=== PATIENT | male | born 1980 | race Caucasian/White ===

== ENCOUNTER 2021-09-27 07:03 | Inpatient (IN) | payer MEDICARE ==
[2021-09-27 08:13] LABS: #Eosinphils 0.1 thou/uL (0.0-0.7); #Lymphocytes 1.3 thou/uL (1.20-3.40); #Monocytes 0.4 thou/uL (0.11-0.59); #Neutrophils 2.7 thou/uL (1.40-6.50); %Basophils 0.7 % (0.0-1.0); %Eosinophils 1.8 % (0.0-10.0); %Lymphocytes 29.3 % (21.0-51.0); %Monocytes 9.1 % (0.0-10.0); %Neutrophils 59.1 % (42.0-75.0); Hemoglobin 9.6 g/dL (14.0-18.0); Mean Corpuscular HGB CONC 33.4 g/dL (32.0-36.0); Mean Corpuscular Hemoglobin 30.4 pg (27.0-31.0); Mean Corpuscular Volume 90.8 fL (78.0-98.0); Mean Platelet Volume 7.9 fL (7.4-10.4); Platelet Count 300 thou/uL (130-400); RBC Distribution Width 12.1 % (11.5-14.5); Red Blood Cell (RBC) Count 3.17 mill/uL (4.70-6.10); White Blood Cell (WBC) Count 4.5 thou/uL (4.8-10.8)
[2021-09-27 08:21] LABS: ALT (SGPT) Less than 7 U/L (8-55); AST (SGOT) 7 U/L (5-34); Albumin 3.7 g/dL (3.5-5.0); Alkaline Phosphatase 70 U/L (40-110); Anion Gap 21 mmol/L (10-20); BUN (Urea Nitrogen) 125 mg/dL (8.9-20.6); Bilirubin, Total 0.4 mg/dL (0.2-1.2); Calc. Creatinine Clearance 0 mL/min (70-130); Calcium 8.1 mg/dL (7.8-10.44); Carbon Dioxide 16 mmol/L (22-29); Chloride 105 mmol/L (98-107); Globulin 3.4 g/dL (2.4-3.5); Glucose 101 mg/dL (70-105); Protein, Total 7.1 g/dL (6.0-8.3); Sodium 139 mmol/L (136-145)
[2021-09-27 08:24] LABS: Potassium 2.9 mmol/L (3.5-5.1)
[2021-09-27] MEDS ORDERED: Ondansetron PF 4 MG/2 ML Vial IVP PRN (08:42)
[2021-09-27] MEDS ORDERED: Acetaminophen 325 MG TAB PO PRN (08:42)
[2021-09-27] MEDS ORDERED: HYDROcodone/Acetaminophen 5/325 mg Tablet PO PRN (08:42)
[2021-09-27] MEDS ORDERED: Calcium Carbonate 500 MG ChewTAB PO PRN (08:42)
[2021-09-27] MEDS ORDERED: Loperamide HCl 2 MG CAP PO PRN (08:42)
[2021-09-27] MEDS ORDERED: Potassium Chloride 20 MEQ TAB ONE (08:51)
[2021-09-27] MEDS ORDERED: Potassium Chloride 20 MEQ TAB PO SCH (09:00)
[2021-09-27] MEDS ORDERED: Famotidine 20 MG TAB PO SCH (09:00)
[2021-09-27] MEDS ORDERED: Sodium Bicarbonate Tab 325 MG TAB PO SCH (09:00)
[2021-09-27] MEDS ORDERED: Dextrose 5% in Water 1,000 ML IV PRN (09:11)
[2021-09-27] MEDS ORDERED: Dextrose 50% Abboject 50 ML SYRINGE SLOW IVP PRN (09:11)
[2021-09-27] MEDS ORDERED: HumaLOG 300 UNITS/3 ML VIAL SC PRN (09:11)
[2021-09-27 11:40] VITALS: BMI 25.3
[2021-09-27] MEDS ORDERED: Sodium Bicarbonate 75 MEQ in Dextrose 5 %-0.45 % NaCl 1,000 ML IV SCH (12:00)
[2021-09-27 13:29] LABS: Albumin 3.5 g/dL (3.5-5.0); Anion Gap 20 mmol/L (10-20); BUN (Urea Nitrogen) 125 mg/dL (8.9-20.6); BUN/Creatinine Ratio 19.35; Calc. Creatinine Clearance 16 mL/min (70-130); Calcium 8.2 mg/dL (7.8-10.44); Carbon Dioxide 16 mmol/L (22-29); Chloride 106 mmol/L (98-107); Glucose 110 mg/dL (70-105); Phosphorus 6.9 mg/dL (2.3-4.7); Potassium 3.3 mmol/L (3.5-5.1); Sodium 139 mmol/L (136-145)
[2021-09-27] MEDS: Sodium Bicarbonate 75 MEQ in Dextrose 5 %-0.45 % NaCl 1,000 ML IV SCH ×2 (14:54→22:01)
[2021-09-27] MEDS: Sodium Bicarbonate Tab 325 MG TAB PO SCH ×2 (14:54→20:48)
[2021-09-27] MEDS: Potassium Chloride 20 MEQ in Premix Bag 1 BAG IVPB SCH ×2 (16:28→17:44)
[2021-09-27 16:29] LABS: CK (CPK) 33 U/L (30-200); Magnesium 1.5 mg/dL (1.6-2.6)
[2021-09-27] MEDS ORDERED: Potassium Chloride 10 MEQ TAB PO SCH (18:15)
[2021-09-27 19:25] LABS: Bilirubin Negative (Negative); Blood, Urine Negative (Negative); Clarity Clear (Clear); Glucose, Urine (Dipstick) Normal (Negative); Ketone, Urine Negative (Negative); Leukocyte Negative Leu/uL (Negative); Mucous/LPF Rare LPF (<2+); Nitrite Negative (Negative); Protein, Urine (Dipstick) 100 mg/dL (Neg-Trace); RBC/HPF 0-3 HPF (0-3); Specific Gravity, Urine 1.013 (1.002-1.036); Squamous Epithelial None Seen HPF (0-3); Urobilinogen Normal mg/dL (Less than 2); WBC/HPF 0-3 HPF (0-3); pH, Urine 5.5 (5.0-9.0)
[2021-09-27 19:41] LABS: Bacteria/HPF Rare-Few HPF (None Seen)
[2021-09-27 19:44] LABS: Creatinine, Urine 128.92 mg/dL (63-166)
[2021-09-27] MEDS: Tacrolimus 1 MG CAP PO SCH (20:48)
[2021-09-27] MEDS ORDERED: LACTINEX 1 TAB PO SCH (21:59)
[2021-09-27 22:46] LABS: SARS-CoV-2 PCR by NAA Not Detected (NotDetected)
[2021-09-28] MEDS: Sodium Bicarbonate 75 MEQ in Dextrose 5 %-0.45 % NaCl 1,000 ML IV SCH ×3 (05:27→17:48)
[2021-09-28 06:15] LABS: #Eosinphils 0.1 thou/uL (0.0-0.7); #Monocytes 0.4 thou/uL (0.11-0.59); #Neutrophils 1.7 thou/uL (1.40-6.50); %Basophils 0.9 % (0.0-1.0); %Eosinophils 2.1 % (0.0-10.0); %Monocytes 11.1 % (0.0-10.0); %Neutrophils 53.9 % (42.0-75.0); Hemoglobin 6.6 g/dL (14.0-18.0); Mean Corpuscular HGB CONC 32.6 g/dL (32.0-36.0); Mean Corpuscular Hemoglobin 29.9 pg (27.0-31.0); Mean Corpuscular Volume 91.9 fL (78.0-98.0); Mean Platelet Volume 7.8 fL (7.4-10.4); Platelet Count 240 thou/uL (130-400); RBC Distribution Width 12.2 % (11.5-14.5); Red Blood Cell (RBC) Count 2.21 mill/uL (4.70-6.10); White Blood Cell (WBC) Count 3.1 thou/uL (4.8-10.8)
[2021-09-28 06:36] LABS: ALT (SGPT) Less than 7 U/L (8-55); AST (SGOT) 6 U/L (5-34); Albumin 2.6 g/dL (3.5-5.0); Alkaline Phosphatase 51 U/L (40-110); Anion Gap 15 mmol/L (10-20); BUN (Urea Nitrogen) 108 mg/dL (8.9-20.6); Bilirubin, Total 0.3 mg/dL (0.2-1.2); Calc. Creatinine Clearance 19 mL/min (70-130); Calcium 6.8 mg/dL (7.8-10.44); Carbon Dioxide 24 mmol/L (22-29); Chloride 102 mmol/L (98-107); Globulin 2.4 g/dL (2.4-3.5); Glucose 477 mg/dL (70-105); Magnesium 1.1 mg/dL (1.6-2.6); Phosphorus 4.9 mg/dL (2.3-4.7); Potassium 2.9 mmol/L (3.5-5.1); Sodium 138 mmol/L (136-145)
[2021-09-28] MEDS: Potassium Chloride 20 MEQ TAB PO SCH ×2 (07:06→12:28)
[2021-09-28] MEDS ORDERED: Magnesium Sulfate In Water 4 GM in Premix Bag 1 BAG IVPB SCH (07:15)
[2021-09-28] MEDS: Sodium Bicarbonate Tab 325 MG TAB PO SCH ×3 (08:23→21:00)
[2021-09-28] MEDS: Tacrolimus 1 MG CAP PO SCH ×2 (08:23→21:00)
[2021-09-28] MEDS: Famotidine 20 MG TAB PO SCH (08:23)
[2021-09-28 14:06] LABS: Anion Gap 16 mmol/L (10-20); BUN (Urea Nitrogen) 112 mg/dL (8.9-20.6); Calc. Creatinine Clearance 19 mL/min (70-130); Calcium 7.9 mg/dL (7.8-10.44); Carbon Dioxide 20 mmol/L (22-29); Chloride 104 mmol/L (98-107); Glucose 146 mg/dL (70-105); Potassium 3.3 mmol/L (3.5-5.1); Sodium 137 mmol/L (136-145)
[2021-09-28] MEDS: Loperamide HCl 2 MG CAP PO PRN (15:30)
[2021-09-28] MEDS: Mycophenolate 250 MG CAP PO SCH (21:00)
[2021-09-29] MEDS: Sodium Bicarbonate 75 MEQ in Dextrose 5 %-0.45 % NaCl 1,000 ML IV SCH ×2 (00:35→09:18)
[2021-09-29] MEDS: Loperamide HCl 2 MG CAP PO PRN ×2 (00:37→05:41)
[2021-09-29 06:24] LABS: Hemoglobin A1c 5.7 % (4.0-6.0)
[2021-09-29] MEDS: Tacrolimus 1 MG CAP PO SCH ×2 (07:52→21:57)
[2021-09-29] MEDS: Mycophenolate 250 MG CAP PO SCH ×2 (07:52→21:57)
[2021-09-29] MEDS: Famotidine 20 MG TAB PO SCH (07:52)
[2021-09-29] MEDS: Sodium Bicarbonate Tab 325 MG TAB PO SCH ×3 (07:52→21:57)
[2021-09-29 07:56] LABS: Mean Corpuscular HGB CONC 34.1 g/dL (32.0-36.0); Mean Corpuscular Hemoglobin 31.1 pg (27.0-31.0); Mean Corpuscular Volume 91.5 fL (78.0-98.0); Mean Platelet Volume 7.5 fL (7.4-10.4); Platelet Count 263 thou/uL (130-400); RBC Distribution Width 12.1 % (11.5-14.5); Red Blood Cell (RBC) Count 2.88 mill/uL (4.70-6.10); White Blood Cell (WBC) Count 3.5 thou/uL (4.8-10.8)
[2021-09-29 08:13] LABS: Albumin 2.9 g/dL (3.5-5.0); Anion Gap 16 mmol/L (10-20); BUN (Urea Nitrogen) 95 mg/dL (8.9-20.6); BUN/Creatinine Ratio 19.75; Calc. Creatinine Clearance 22 mL/min (70-130); Calcium 7.7 mg/dL (7.8-10.44); Carbon Dioxide 21 mmol/L (22-29); Chloride 105 mmol/L (98-107); Glucose 167 mg/dL (70-105); Magnesium 2.1 mg/dL (1.6-2.6); Phosphorus 4.1 mg/dL (2.3-4.7); Potassium 3.2 mmol/L (3.5-5.1); Sodium 139 mmol/L (136-145)
[2021-09-29] MEDS ORDERED: Ergocalciferol 1.25 MG(50,000 UNITS) CAP PO SCH (10:00)
[2021-09-29] MEDS: Potassium Chloride 20 MEQ TAB PO SCH ×3 (11:02→21:57)
[2021-09-29] MEDS: Lactated Ringer's 1,000 ML IV SCH ×2 (11:02→16:18)
[2021-09-30] MEDS: Lactated Ringer's 1,000 ML IV SCH ×3 (03:05→17:54)
[2021-09-30 06:46] LABS: Hemoglobin 8.8 g/dL (14.0-18.0); Mean Corpuscular HGB CONC 34.3 g/dL (32.0-36.0); Mean Corpuscular Volume 93.2 fL (78.0-98.0); Mean Platelet Volume 7.2 fL (7.4-10.4); Platelet Count 257 thou/uL (130-400); RBC Distribution Width 12.2 % (11.5-14.5); Red Blood Cell (RBC) Count 2.75 mill/uL (4.70-6.10); White Blood Cell (WBC) Count 3.6 thou/uL (4.8-10.8)
[2021-09-30 07:15] LABS: Albumin 2.8 g/dL (3.5-5.0); Anion Gap 13 mmol/L (10-20); BUN (Urea Nitrogen) 84 mg/dL (8.9-20.6); BUN/Creatinine Ratio 20.34; Calc. Creatinine Clearance 25 mL/min (70-130); Calcium 8.2 mg/dL (7.8-10.44); Carbon Dioxide 24 mmol/L (22-29); Chloride 107 mmol/L (98-107); Glucose 102 mg/dL (70-105); Phosphorus 3.8 mg/dL (2.3-4.7); Potassium 4.1 mmol/L (3.5-5.1); Sodium 140 mmol/L (136-145)
[2021-09-30] MEDS: Sodium Bicarbonate Tab 325 MG TAB PO SCH ×3 (07:54→21:42)
[2021-09-30] MEDS: Famotidine 20 MG TAB PO SCH (07:55)
[2021-09-30] MEDS: Tacrolimus 1 MG CAP PO SCH ×2 (07:55→21:42)
[2021-09-30] MEDS: Mycophenolate 250 MG CAP PO SCH ×2 (07:55→21:41)
[2021-09-30] MEDS: Calcium Carbonate 600 MG TAB PO SCH (07:55)
[2021-09-30 14:12] LABS: CMV IgG AB Greater than 10.00 U/mL (0.00-0.59)
[2021-09-30] MEDS: Loperamide HCl 2 MG CAP PO PRN (21:42)
[2021-10-01] MEDS: Lactated Ringer's 1,000 ML IV SCH ×2 (01:50→10:09)
[2021-10-01 08:06] LABS: Hemoglobin 8.3 g/dL (14.0-18.0); Mean Corpuscular HGB CONC 32.7 g/dL (32.0-36.0); Mean Corpuscular Volume 94.9 fL (78.0-98.0); Mean Platelet Volume 7.3 fL (7.4-10.4); Platelet Count 273 thou/uL (130-400); RBC Distribution Width 12.2 % (11.5-14.5); Red Blood Cell (RBC) Count 2.66 mill/uL (4.70-6.10); White Blood Cell (WBC) Count 3.2 thou/uL (4.8-10.8)
[2021-10-01 08:24] LABS: Anion Gap 14 mmol/L (10-20); BUN (Urea Nitrogen) 68 mg/dL (8.9-20.6); Calc. Creatinine Clearance 28 mL/min (70-130); Carbon Dioxide 22 mmol/L (22-29); Chloride 108 mmol/L (98-107); Potassium 3.9 mmol/L (3.5-5.1); Sodium 140 mmol/L (136-145)
[2021-10-01 08:25] LABS: Albumin 2.7 g/dL (3.5-5.0); BUN/Creatinine Ratio 18.18; Calcium 7.9 mg/dL (7.8-10.44); Glucose 116 mg/dL (70-105); Iron 112 ug/dL (65-175); Iron Binding Capacity, Total 128 mcg/dL (261-462); Phosphorus 4.1 mg/dL (2.3-4.7)
[2021-10-01] MEDS: Mycophenolate 250 MG CAP PO SCH (08:31)
[2021-10-01] MEDS: Calcium Carbonate 600 MG TAB PO SCH (08:32)
[2021-10-01] MEDS: Famotidine 20 MG TAB PO SCH (08:32)
[2021-10-01] MEDS: Tacrolimus 1 MG CAP PO SCH (08:32)
[2021-10-01] MEDS: Sodium Bicarbonate Tab 325 MG TAB PO SCH (08:32)
[2021-10-01 08:39] VITALS: TEMP 98.2
[2021-10-01] MEDS ORDERED: Amlodipine 5 MG TAB PO SCH ×2 (09:00→10:00)
[2021-10-01] MEDS ORDERED: Tacrolimus 1 MG CAP PO SCH ×4 (10:01→21:00)
[2021-10-01] MEDS ORDERED: Epoetin (ESRD) 10,000 UNITS/ML VIAL SC SCH (12:00)
[2021-10-01] MEDS: Loperamide HCl 2 MG CAP PO PRN (12:24)
[2021-10-01 12:33] VITALS: BP 182/83
[2021-10-01 14:37] LABS: Tacrolimus 13.3 ng/mL (2.0-20.0)
[2021-10-02 21:36] LABS: Norovirus GI Positive (Negative); Norovirus GII Negative (Negative)
[2021-10-06] MEDS ORDERED: Ergocalciferol 1.25 MG(50,000 UNITS) CAP PO SCH (09:00)
== END 2021-10-01 14:33 | disposition home or self-care (01) | DRG 698 ==
LOC: ERS 07:03 → T4-A 08:32
PROVIDERS: ADMIT Family Medicine; ATTEND Internal Medicine
PROC: 30233N1 Transfusion of Nonautologous Red Blood Cells into Peripheral Vein, Percutaneous Approach (ICD-10-PCS; principal; 2021-09-28)
DX: T86.19 Other complication of kidney transplant (principal); N18.6 End stage renal disease; N17.9 Acute kidney failure, unspecified; Z94.83 Pancreas transplant status; E87.2 Acidosis; I12.0 Hypertensive chronic kidney disease with stage 5 chronic kidney disease or end stage renal disease; E87.6 Hypokalemia; D63.1 Anemia in chronic kidney disease; E10.22 Type 1 diabetes mellitus with diabetic chronic kidney disease; E83.51 Hypocalcemia; E55.9 Vitamin D deficiency, unspecified; T21.22XA Burn of second degree of abdominal wall, initial encounter; X15.8XXA Contact with other hot household appliances, initial encounter; E83.42 Hypomagnesemia; K52.9 Noninfective gastroenteritis and colitis, unspecified; Z20.822 Contact with and (suspected) exposure to COVID-19; Z79.899 Other long term (current) drug therapy; Y93.G3 Activity, cooking and baking; Y92.000 Kitchen of unspecified non-institutional (private) residence as the place of occurrence of the external cause; Z83.3 Family history of diabetes mellitus; Z87.891 Personal history of nicotine dependence
CPT/HCPCS: 36415; 36416; 36430; 76775; 80053; 80069; 80197; 81001; 82306; 82570; 82728; 83036; 83540; 83550; 83735; 84100; 84156; 84300; 84540; 85025; 85027; 86644; 86645; 86850; 86900; 86901; 87045; 87046; 87081; 87324; 87328; 87329; 87427; 87449; 87798; 93005; J3475; J3480; J7042; J7120; J7507; J7517; P9016; U0003; U0005